=== PATIENT | male | born 1995 ===

== ENCOUNTER 2017-02-25 19:16 | Emergency (ER) | payer MEDICAID ==
[2017-02-25 19:31] VITALS: BP 103/55; PULSE 71; RESP 16; TEMP 96.8; O2SAT 99
--- NOTE | 2017-02-25 19:54 | ED PDOC ---
Lower Extremity Pain/Injury Time Seen by Provider: 02/25/17 19:37 Chief Complaint (Nursing): Lower Extremity Problem/Injury Chief Complaint (Provider): Lower extremity problem/injury History Per: Patient History/Exam Limitations: no limitations Onset/Duration Of Symptoms: Days (1x) Current Symptoms Are (Timing): Still Present Severity: Moderate Additional Complaint(s): 21 year old male presents to the ED with right knee pain that started yesterday. He reports that he bent down to pick a ball up, heard a pop in his right knee, and then felt pain. He tried to treat the pain and swelling with ice and elevation, but has had no relief. He reports that this morning the swelling has worsened and the pain has increased. He denies taking any medication for pain relief. PMD: Patient does not recall. - Knee Description Of Injury: Other (heard a pop and felt pain after he bent down to pick something up) Past Medical History Reviewed: Nursing Documentation, Vital Signs Vital Signs: Last Vital Signs Temp 96.8 F L 02/25/17 19:28 Pulse 71 02/25/17 19:28 Resp 16 02/25/17 19:28 BP 103/55 L 02/25/17 19:28 Pulse Ox 99 02/25/17 19:28 - Family History Family History: States: Unknown Family Hx - Home Medications Home Medications: Ambulatory Orders Medication Instructions Recorded Ibuprofen [Motrin Tab] 600 mg PO Q6 #30 tab 02/25/17 traMADol [Ultram] 50 mg PO BID #10 tab 02/25/17 - Allergies Allergies/Adverse Reactions: Allergies Allergy/AdvReac Type Severity Reaction Status Date / Time No Known Allergies Allergy Verified 02/25/17 19:28 Review of Systems Musculoskeletal: Positive for: Other (right knee pain, redness, and swelling) Physical Exam - Reviewed Nursing Documentation Reviewed: Yes Vital Signs Reviewed: Yes - Physical Exam Appears: Positive for: Well, Non-toxic, No Acute Distress Head Exam: Positive for: ATRAUMATIC, NORMOCEPHALIC Extremity: Positive for: Normal ROM (able to straighten right knee. Able to bend right knee near 90 degrees with increased pain.), Tenderness (right knee: increased tenderness to palpation on lateral anterior knee.), Swelling (right knee), Other (right knee: swelling and ecchymosis to the knee below patella. Negative valgus varus stress test. ) Neurologic/Psych: Positive for: Alert, Oriented (3x) - ECG O2 Sat by Pulse Oximetry: 99 (RA) Pulse Ox Interpretation: Normal Medical Decision Making Medical Decision Makin:37 Initial impression: 21 year old male with right knee pain and swelling. Initial plan: * XRay right knee 3 views * motrin tab 600mg PO * reevaluation [address] Batista via text, states he will evaluate patient in [facility]. Pt. placed in knee immobilizer and cecelia wrap. RICE precautions given. Scribe Attestation: Documented by Katheryn Silva, acting as a scribe for Kenneth Norman MD. Provider Scribe Attestation: All medical record entries made by the Scribe were at my direction and personally dictated by me. I have reviewed the chart and agree that the record accurately reflects my personal performance of the history, physical exam, medical decision making, and the department course for this patient. I have also personally directed, reviewed, and agree with the discharge instructions and disposition. Disposition - Clinical Impression Clinical Impression: Knee sprain - Disposition Referrals: [facility] [Outside] (Please say that you are an URGENT EMERGENCY ROOM REFERRAL for Dr. Batista.) Disposition Time: 21:18 Condition: STABLE Prescriptions: Ibuprofen [Motrin Tab] 600 mg PO Q6 #30 tab traMADol [Ultram] 50 mg PO BID #10 tab Instructions: Knee Sprain (ED), Crutch Instructions (ED), Knee Immobilizer (ED)
--- NOTE | 2017-02-26 10:37 | RAD ---
PROCEDURE: Right Knee Radiographs. HISTORY: R knee "pop" after bending COMPARISON: None. FINDINGS: BONES: Normal. No fracture. JOINTS: Normal. No osteoarthritis. JOINT EFFUSION: None. OTHER FINDINGS: None. IMPRESSION: Normal radiographs of the right knee.
== END 2017-02-25 21:25 | disposition home or self-care (01) ==
LOC: H.ER 19:16
DX: S83.91XA Sprain of unspecified site of right knee, initial encounter (principal); X50.9XXA Other and unspecified overexertion or strenuous movements or postures, initial encounter; Y92.89 Other specified places as the place of occurrence of the external cause

== ENCOUNTER 2017-03-02 19:57 | Emergency (ER) | payer MEDICAID ==
[2017-03-02 20:52] VITALS: BP 118/68; PULSE 66; RESP 18; TEMP 97.5; O2SAT 99
--- NOTE | 2017-03-02 22:54 | ED PDOC ---
Lower Extremity Pain/Injury Time Seen by Provider: 03/02/17 21:46 Chief Complaint (Nursing): Lower Extremity Problem/Injury Chief Complaint (Provider): Knee pain History Per: Patient Additional Complaint(s): 21 year old male presents to the ED with right knee pain that started 1 week ago now. Pt reports that he kneels on the floor alot for work and over time developed swelling. Pt seen and evaluated here on 02/25 and had reported that he bent down to pick a ball up, heard a pop in his right knee, and then felt pain. pt denies feeling any pop. Pt tried to treat the pain and swelling with ice and elevation, but has had no relief. He reports that this morning the swelling has worsened and the pain has increased. He denies taking any medication for pain relief. Pt was advised to follow up with Dr. Lester clark; shalonda, Pt unable to get an appointment. PMD: Patient does not recall. Past Medical History Reviewed: Nursing Documentation, Vital Signs Vital Signs: Last Vital Signs Temp 97.5 F L 03/02/17 20:48 Pulse 66 03/02/17 20:48 Resp 18 03/02/17 20:48 BP 118/68 03/02/17 20:48 Pulse Ox 99 03/02/17 20:48 - Medical History PMH: No Chronic Diseases - Surgical History Surgical History: No Surg Hx - Family History Family History: States: Unknown Family Hx - Living Arrangements Living Arrangements: With Family - Social History Current smoker - smoking cessation education provided: No Alcohol: Social Drugs: Denies - Home Medications Home Medications: Ambulatory Orders Medication Instructions Recorded Ibuprofen [Motrin Tab] 600 mg PO Q6 #30 tab 02/25/17 traMADol [Ultram] 50 mg PO BID #10 tab 02/25/17 - Allergies Allergies/Adverse Reactions: Allergies Allergy/AdvReac Type Severity Reaction Status Date / Time No Known Allergies Allergy Verified 02/25/17 19:28 Review of Systems ROS Statement: Except As Marked, All Systems Reviewed And Found Negative Musculoskeletal: Positive for: Leg Pain Physical Exam - Reviewed Nursing Documentation Reviewed: Yes Vital Signs Reviewed: Yes - Physical Exam Appears: Positive for: Well, Non-toxic, No Acute Distress Head Exam: Positive for: ATRAUMATIC, NORMAL INSPECTION, NORMOCEPHALIC Skin: Positive for: Normal Color, Warm, DRY Eye Exam: Positive for: EOMI, Normal appearance, PERRL ENT: Positive for: Normal ENT Inspection Neck: Positive for: Normal, Painless ROM Cardiovascular/Chest: Positive for: Regular Rate, Rhythm Respiratory: Positive for: CNT, Normal Breath Sounds Gastrointestinal/Abdominal: Positive for: Normal Exam, Bowel Sounds, Soft Back: Positive for: Normal Inspection Extremity: Positive for: Normal ROM, Tenderness, Other ((+) tender, non erythematous, mobile, boggy mass noted over patellar tendon) Neurologic/Psych: Positive for: Alert, Oriented - ECG O2 Sat by Pulse Oximetry: 99 Medical Decision Making Medical Decision Making: Pt given health and human performance professor service to use for follow up. Indications for drainage discussed, as well as risks. Pt requesting drainage. Attempt made by appeals writer, no fluid produced. Disposition - Clinical Impression Clinical Impression: Knee pain - Patient ED Disposition Is Patient to be Admitted: No - Disposition Disposition: Routine/Home Disposition Time: 22:57 Condition: STABLE - POA Present On Arrival: None Incision and Drainage - Time Time Performed: 22:56 - Time Out Time Out: Side verified, Site verified - Consent obtained Consent obtained: Verbal - Performed by Performed by: Mid-level Provider - Indications Indications: Cyst - Contraindications Contraindications: None - Location Location: Left, Knee - Post-procedure Post procedure: Dressed - Complications Complications: None - Patient tolerated procedure Patient tolerated procedure: Well
== END 2017-03-02 23:00 | disposition home or self-care (01) ==
LOC: H.ER 19:57
DX: M25.561 Pain in right knee (principal)